=== PATIENT | female | born 1945 | race Hispanic/Latino ===

== ENCOUNTER → 2018-03-20 | Outpatient (CLI) | payer OTHER, MEDICARE ==
[~2018-03-20] MED LIST: BACL10TA PO; CALC-724 PO; CARV25TA PO; CEPH-578 PO; ERGO500014 PO; ESCI20TA PO; LEVO75TA10 PO; LORA-705 PO; LOSA1TAB37 PO; POTA2TAB18 PO; PYRI60TA PO; SIMV10TA6 PO
== END | disposition home or self-care (01) ==
LOC: OIH 16:01
PROVIDERS: ATTEND Family Medicine
DX: M17.11 Unilateral primary osteoarthritis, right knee (principal); M79.89 Other specified soft tissue disorders; I70.90 Unspecified atherosclerosis
CPT/HCPCS: 73590

== ENCOUNTER → 2018-09-24 | Outpatient (CLI) | payer OTHER, MEDICARE | END | disposition home or self-care (01) | LOC: OIH 13:06 | PROVIDERS: ATTEND Family Medicine | DX: J20.9 Acute bronchitis, unspecified (principal); I20.9 Angina pectoris, unspecified | CPT/HCPCS: 71046 ==

== ENCOUNTER → 2020-02-11 | Outpatient (CLI) | payer OTHER, MEDICARE ==
[~2020-02-11] MED LIST changes: +CALC-1158 PO; -CALC-724 PO; -SIMV10TA6 PO; +SIMV10TA97 PO
== END | disposition home or self-care (01) ==
LOC: RAH 07:31
PROVIDERS: ATTEND Family Medicine
DX: R10.2 Pelvic and perineal pain (principal); Z90.710 Acquired absence of both cervix and uterus; Z90.89 Acquired absence of other organs
CPT/HCPCS: 76856

== ENCOUNTER 2021-03-26 18:50 | Emergency (ER) | payer OTHER, MEDICARE ==
[~2021-03-26] VITALS: Ht 152.4 cm; Wt 130.6 kg
[~2021-03-26 18:50] MED LIST changes: +LORA-699 PO; -LORA-705 PO
[2021-03-26 22:24] VITALS: BP 141/51
[2021-03-26 22:58] LABS: BASOPHILS % (AUTO) 0.3 % (0.0-5.0); EOSINOPHILS % (AUTO) 1.7 % (0.0-8.0); HEMATOCRIT 31.9 % (36-48); LYMPHOCYTES % (AUTO) 16.5 % (21.0-51.0); MEAN CORPUSCULAR HEMOGLOBIN 26.6 pg (27.0-33.0); MEAN CORPUSCULAR VOLUME 83.1 fL (79-99); MONOCYTES % (AUTO) 8.2 % (3.0-13.0); NEUTROPHILS % (AUTO) 72.5 % (40.0-77.0); PLATELET COUNT (AUTO) 231 K/uL (130-400); RED BLOOD CELL COUNT(AUTO) 3.84 MIL/uL (4.00-5.50); RED CELL DISTRIBUTION WIDTH 17.2 % (11.0-15.5); WHITE BLOOD COUNT (AUTO) 10.5 K/uL (4.8-10.8)
[2021-03-26] MEDS ORDERED: PANTOPRAZOLE 40 MG/VIAL IVP SCH (23:00)
[2021-03-26] MEDS ORDERED: FAMOTIDINE 20MG VIAL IV ONE (23:00)
[2021-03-26] MEDS ORDERED: METOCLOPRAMIDE 10 MG/2 ML VIAL IVP ONE (23:00)
[2021-03-26] MEDS ORDERED: DiphenhydrAMINE HCL 50 MG/ML VIAL IV ONE (23:00)
[2021-03-26] MEDS ORDERED: LACTATED RINGERS 1000ML 1,000 ML IV ONE (23:00)
[2021-03-26] MEDS ORDERED: ORPHENADRINE CITRATE 30 MG/ML ML IV STA (23:04)
[2021-03-26 23:05] LABS: CREATININE 0.8 mg/dL (0.5-1.5); INR 0.97 (0.85-1.15); POTASSIUM 3.6 mmol/L (3.5-5.1); PROTHROMBIN TIME 10.6 SEC (9.6-11.6)
[2021-03-26 23:09] LABS: ALBUMIN 3.1 g/dL (3.5-5.0); BILIRUBIN,TOTAL 1.3 mg/dL (0.2-1.0); TOTAL PROTEIN, SERUM 6.8 g/dL (6.0-8.3)
[2021-03-26 23:50] VITALS: BP 135/46
[2021-03-27] MEDS ORDERED: METO5TAB7 PO (00:01)
[2021-03-27] MEDS ORDERED: HYDR-4068 PO (00:01)
[2021-03-27] MEDS ORDERED: FURO40TA5 PO (00:01)
[2021-03-27] MEDS ORDERED: CEFU500T67 PO (00:01)
[2021-03-27] MEDS ORDERED: CALC-190 PO (00:01)
[2021-03-27] MEDS ORDERED: ESCI20TA38 PO (00:01)
[2021-03-27] MEDS ORDERED: AZAT50TA17 PO (00:01)
[2021-03-27] MEDS ORDERED: GABA300C PO (00:01)
[2021-03-27] MEDS ORDERED: SIMV10TA97 PO (00:01)
[2021-03-27] MEDS ORDERED: MIRT-22 PO (00:01)
[2021-03-27 00:57] VITALS: BP 134/52
[2021-03-27] MEDS ORDERED: KETOROLAC 30MG VIAL (30MG/ML) IV ONE (01:00)
[2021-03-27] MEDS ORDERED: CLINDAMYCIN IVPB 900MG/50ML 50 ML IV SCH (01:00)
[2021-03-27] MEDS ORDERED: CLIN300C10 PO (01:12)
[2021-03-27] MEDS ORDERED: ONDA4TAB10 PO (01:12)
[2021-03-27] MEDS ORDERED: PANT40TA PO (01:12)
[2021-03-27] MEDS ORDERED: DICY20TA2 PO (01:12)
[2021-03-27 01:58] VITALS: BP 115/41
== END 2021-03-27 02:15 | disposition home or self-care (01) ==
LOC: EDH 18:50
DX: K29.70 Gastritis, unspecified, without bleeding (principal); E86.9 Volume depletion, unspecified; L03.115 Cellulitis of right lower limb; E11.9 Type 2 diabetes mellitus without complications; E78.5 Hyperlipidemia, unspecified; I10 Essential (primary) hypertension; M79.661 Pain in right lower leg; Z88.2 Allergy status to sulfonamides; Z88.0 Allergy status to penicillin; Z88.1 Allergy status to other antibiotic agents; Z79.899 Other long term (current) drug therapy; Z79.1 Long term (current) use of non-steroidal anti-inflammatories (NSAID)
CPT/HCPCS: 36415; 71045; 74176; 80053; 83605; 83690; 84484; 85025; 85610; 87040 ×2; 87077; 87186; 93005; 93971; 96365; 96375 ×3; 99285; C9113; J1200; J2765; J3490 ×2; 96367